=== PATIENT | male | born 1965 | race Caucasian/White ===

== ENCOUNTER 2016-08-13 08:44 | Emergency (ER) | payer MEDICARE ==
[~2016-08-13] VITALS: Ht 170.2 cm; Wt 61.6 kg
[2016-08-13 08:46] VITALS: BP 119/80
== END 2016-08-13 09:08 | disposition home or self-care (01) ==
LOC: ED 09:02
DX: B86 Scabies (principal); F17.210 Nicotine dependence, cigarettes, uncomplicated
CPT/HCPCS: 99283